=== PATIENT | female | born 2005 | race Caucasian/White ===

== ENCOUNTER 2024-06-16 13:45 | Emergency (ER) | payer OTHER ==
[2024-06-16 15:50] LABS: INFLUENZA A NAA NEGATIVE (NEGATIVE); INFLUENZA B NAA NEGATIVE (NEGATIVE); RESPIRATORY SYNCYTIAL VIR NAA NEGATIVE (NEGATIVE)
[2024-06-16 15:51] LABS: CORONAVIRUS COVID-19 NAA NEGATIVE (NEGATIVE)
== END 2024-06-16 16:00 | disposition home or self-care (01) ==
LOC: LB.ED 13:45
DX: J02.0 Streptococcal pharyngitis (principal); I10 Essential (primary) hypertension; Z88.0 Allergy status to penicillin; Z79.899 Other long term (current) drug therapy
CPT/HCPCS: 0241U; 87651; 99283